=== PATIENT | male | born 1980 | race Caucasian/White ===

== ENCOUNTER 2017-01-03 16:00 | Inpatient (IN) | payer MEDICARE, MEDICAID ==
[~2017-01-03] VITALS: Ht 185.4 cm; Wt 98.6 kg
[~2017-01-03 16:00] MED LIST: BACL10TA PO; BISA10EN RC; DIAZ5TAB3 PO; DOCU-41 PO; GABA-502 PO; MORP-32 PO; OXYB15TA PO; OXYC10TA8 PO; PANT20TA2 PO; PARO20TA5 PO; SENN-133 PO; TRAZ-115 PO; VANC750V IV
[2017-01-03 16:14] VITALS: BP 123/71; PULSE 104; RESP 20; O2SAT 97
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
[2017-01-03] MEDS ORDERED: 0.9% Sodium Chloride 1,000 ML IV ONE (17:30)
[2017-01-03 18:06] LABS: APPEARANCE,URINE CLEAR (CLEAR,HAZY); COLOR,URINE YELLOW (YELLOW); OCCULT BLOOD,URINE TRACE (NEGATIVE); UROBILINOGEN,URINE NORMAL (NORMAL)
[2017-01-03 18:22] LABS: BASOPHILS % (AUTO) 0.1 % (0-3); EOSINOPHILS % (AUTO) 0.3 % (0-5); MONOCYTES % (AUTO) 4.9 % (4-12); Mean Corpuscular Hemoglobin 28.7 pg (27.0-35.0); Mean Corpuscular Volume 84.8 fL (81-100); NEUTROPHILS % (AUTO) 84.1 % (40-74); Platelet Count 266 bil/L (150-400)
--- NOTE | 2017-01-03 18:23 | DRSVH ---
PROCEDURE: X-RAY RIGHT FOOT COMPLETE, MINIMUM THREE VIEWS ([id number]) INDICATIONS: chronic ulcer TECHNIQUE: 3 views of the foot were acquired. COMPARISON: [facility], CR, XR FOOT 3VW RT, 06/16/2016, 17:40. FINDINGS: Bones: No fractures or dislocations. No suspicious bony lesions. Mild first MTP joint degeneration . Severe subluxation/dorsal dislocation of the fifth MTP joint. There is lateral focal osseous destru ction of the fifth metatarsal head Soft tissues: No tibiotalar joint effusion. Achilles tendon appears normal. IMPRESSION: Dislocation of the fifth MTP joint. Lytic change, and focal osseous destruction involving the fifth metatarsal head in keeping with osteo myelitis Dictated by: Vitaliy Kam M.D. on 01/03/2017 at 18:19 Approved by: Vitaliy Kam M.D. on 01/03/2017 at 18:22
--- NOTE | 2017-01-03 18:38 | PCM.EDPN ---
ED Note Date of Service Jan 03, 2017 1844: Patient rechecked by Dr. Norman after shift-change signover. His x- ray has been read as osteomyelitis and he is positive for UTI. He has a wound care visit in 5 days. Discussed findings with patient and need for specialized care. NPO as of about 14:00 today. Informed patient of need for admission for further evaluation and possible surgical intervention. He agrees with plan for admission. Impression: osteomyelitis, urinary tract infection Labs & Diagnostics Labs & Diagnostics X-ray right foot, 3 views complete IMPRESSION: Dislocation of the fifth MTP joint. Lytic change, and focal osseous destruction involving the fifth metatarsal head in keeping with osteomyelitis Dictated by: Vitaliy Kam M.D. on 01/03/2017 at 18:19 Approved by: Vitaliy Kam M.D. on 01/03/2017 at 18:22 Consult/PCP Time Consult/PCP Called: 18:55 Consult/PCP: Consulted with labor custodian Dr. Romero. Requests to keep him NPO at midnight. ED Scribe Statement Portions of this note were transcribed by Flynn Kahn. I, Dr. Normna, personally performed the history, physical exam and medical decision-making; I reviewed and confirmed the accuracy of the information in the transcribed note. Signed by Kalyn Cortez, 01/03/17 - 1844 ED Attending Statement I assumed care of patient from Dr. Lewis pending lab results. Patient with osteo-myelitis right fifth metatarsal. Also with UTI. Will be admitted and kept nothing by mouth at midnight. Placed on vancomycin and Zosyn. Podiatry will see patient in the morning. Kirt Norman MD Jan 03, 2017 18:38 FLYNN KAHN Jan 03, 2017 18:46
[2017-01-03] MEDS ORDERED: Vancomycin Dose per Pharmacist XX ONE (18:55)
[2017-01-03] MEDS ORDERED: Piperacillin-Tazo 3.375 Gm Inj 3.375 GM in Dextrose 5% Minibag Plus 50 ML IV ONE (18:55)
[2017-01-03 19:13] VITALS: BP 112/67; PULSE 61; O2SAT 98
[2017-01-03] MEDS ORDERED: Ondansetron 2 mg/mL 2 mL Inj IVPUSH PRN ×2 (19:15→19:30)
[2017-01-03] MEDS ORDERED: Alum-Mag Hydrox-Simeth 30 mL Suspension PO PRN ×2 (19:15→19:30)
[2017-01-03] MEDS ORDERED: 0.9% Sodium Chloride 100 ML ONE (19:20)
[2017-01-03] MEDS ORDERED: Vancomycin Inj 2,000 MG in 0.9% Sodium Chloride 500 ML IV ONE (19:20)
[2017-01-03] MEDS ORDERED: Polyethylene Glycol (PEG) 17 Gm Powder PO PRN (19:30)
[2017-01-03] MEDS ORDERED: BACL10TA PO (20:01)
--- NOTE | 2017-01-03 20:25 | NUR ---
Admit Note Pt. arrived on floor at 2019. Pt. was having severe muscle spasms. Pt. is alert and oriented x3. Peripheral IV intact and patent. Will continue to monitor.
[2017-01-03] MEDS ORDERED: Morphine ER 15 mg (MS Contin) Tablet PO SCH (20:45)
[2017-01-03 21:00] VITALS: BP 111/72; PULSE 73; RESP 16; O2SAT 97
[2017-01-03] MEDS: 0.9% Sodium Chloride 1,000 ML IV SCH (21:12)
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
[2017-01-03] MEDS: Vancomycin Dose per Pharmacist XX SCH (22:12)
[2017-01-03] MEDS: HYDROmorphone 1 mg/mL Inj IVPUSH PRN (22:33)
[2017-01-04] VITALS (11 sets, daily range): BP systolic 97–118; BP diastolic 58–72; PULSE 49–72; RESP 11–16; O2SAT 90–97
--- NOTE | 2017-01-04 03:30 | PCM.CONPHA ---
Subjective Nausea, fevers, chills Reason for Pharmacy Consult: Vancomycin Dosing Assessment/Plan Assessment/Plan Pharmacy Kinetic Dosing Vancomycin Indication: Osteomyelitis Vanc goal trough: 15-20 mcg Pt wt: 98.6 kg Other ABX: Zosyn SCr: 0.62 WBC: 7.6 Cultures: Blood pending Assessment/Plan: - Loading dose of vancomycin 2,000 mg given in ED. -Will schedule vancomycin to 1250 mg Q8H (roughly 12.6mg/kg) -Will schedule trough level to be drawn on 01/05/17 @0500. Pharmacy appreciates consult and will continue to monitor. Thanks, Ayaan [place], PharmD Ayaan Colorado Jan 04, 2017 03:30
[2017-01-04] MEDS: Piperacillin-Tazo 3.375 Gm Inj 3.375 GM in Dextrose 5% Minibag Plus 50 ML IV SCH ×2 (03:45→11:33)
[2017-01-04] MEDS: HYDROmorphone 1 mg/mL Inj IVPUSH PRN ×3 (05:22→14:08)
[2017-01-04 06:11] LABS: BASOPHILS % (AUTO) 0.3 % (0-3); EOSINOPHILS % (AUTO) 2.7 % (0-5); MONOCYTES % (AUTO) 10.7 % (4-12); Mean Corpuscular Hemoglobin 28.7 pg (27.0-35.0); Mean Corpuscular Volume 86.9 fL (81-100); NEUTROPHILS % (AUTO) 64.1 % (40-74); Platelet Count 199 bil/L (150-400)
[2017-01-04] MEDS: Pantoprazole 20 mg ER24 Tablet PO SCH (07:30)
[2017-01-04] MEDS ORDERED: Lidocaine PF 1% 30 mL Inj ONE (08:04)
[2017-01-04] MEDS ORDERED: fentaNYL-PF 50 mCg/mL 2 mL Inj ONE (08:04)
[2017-01-04] MEDS ORDERED: Propofol 10,000 mCg/mL 20 mL Inj ONE (08:04)
--- NOTE | 2017-01-04 08:15 | PCM.PNMED ---
Subjective Date of Service Jan 04, 2017 Lea Moffett is a 36-year-old man with spastic paraplegia from the chest down. The patient has had a pressure ulceration on his right foot that led to osteomyelitis. In the effort to preserve his foot structure, he was treated with IV antibiotics and localized debridement, including some bone. He was discharged from the wound care center after successful wound healing was completed following a course of 6 weeks of IV antibiotics. This all apparently happened in August to October He was supposed to see Dr. Veliz in follow-up this , but the ulceration has recurred over the past 2 weeks. At this point he is tired of dealing with this and missing important events in his life by getting sick in association with this recurrent ulceration. He knows that a partial fifth toe amputation, if it heals properly, would be definitive treatment. The patient decided to go for the surgery and he is being seen after having undergone right small toe amputation. He states Over the past few days he has had fevers, chills, nausea, and vomiting. Currently in the room he says his having muscle spasms and states that he is on a lot of baclofen that he does not feel it is ever enough. He is asking for his home pain medications instead of Dilaudid as his home morphine is extended release. He is eating okay denies nausea. Exam Vital Signs Vital Sign - Last Date Time Temp Pulse Resp B/P Pulse Ox O2 Delivery O2 Flow Rate FiO2 01/04/17 06:30 36.7 61 16 106/65 94 Room Air Intake and Output 01/03/17 01/03/17 01/04/17 Cumulative From/Thru 15:00 23:00 07:00 01/03/17 16:14 - 01/04/17 06:49 Intake Total 1000 ml 1331 ml 2331 ml Output Total 750 ml 750 ml Balance 1000 ml 581 ml 1581 ml Intake Oral 300 ml 300 ml IV Total 1000 ml 1031 ml 2031 ml Output Urine Total 750 ml 750 ml Exam Gen.: writhing in bed stating he is having an acute muscle spasm. HEENT normocephalic atraumatic. Heart: Regular rate and rhythm or murmurs. Lungs clear to auscultation no crackles or wheezes. Abdomen nondistended Extremities: Right foot is wrapped and pressure dressings, left lower extremity negative for edema Neuro: He has no sensation down was unable to feel gentle touch over his feet and legs. Psych: Affect is impatient, mood is impatient IVs and Medications Medications Reviewed: Medications were reviewed in detail Lab and Diagnostics Result Diagram: 01/04/1751401/04/17514 X-Rays, CTs and MRIs [facility] Diagnostic Imaging Department [facility] [place] [address] Patient Name: MARIA A KING MR#: [id number] Location: [facility] Ordering Phys: Itzel Lewis MD Date of Service: 01/03/17 8168 PROCEDURE: X-RAY RIGHT FOOT COMPLETE, MINIMUM THREE VIEWS ([id number]) INDICATIONS: chronic ulcer TECHNIQUE: 3 views of the foot were acquired. COMPARISON: [facility], CR, XR FOOT 3VW RT, 06/16/2016, 17:40. FINDINGS: Bones: No fractures or dislocations. No suspicious bony lesions. Mild first MTP joint degeneration. Severe subluxation/dorsal dislocation of the fifth MTP joint. There is lateral focal osseous destruction of the fifth metatarsal head Soft tissues: No tibiotalar joint effusion. Achilles tendon appears normal. IMPRESSION: Dislocation of the fifth MTP joint. Lytic change, and focal osseous destruction involving the fifth metatarsal head in keeping with osteomyelitis Dictated by: Vitaliy Kam M.D. on 01/03/2017 at 18:19 Approved by: Vitaliy Kam M.D. on 01/03/2017 at 18:22 [facility] Diagnostic Imaging Department [facility] [place] [address] PATIENT NAME: MARIA A KING MR#: [id number] LOCATION: SCT ORDERING PHYS: Kristy Veliz DPM DATE OF SERVICE: 06/27/16 1555 PROCEDURE: CT FOOT RIGHT WITH CONRAST ([id number]) INDICATIONS: NONHEALING R FOOT WOUND TECHNIQUE: After the administration of intravenous contrast, 3 mm axial sections acquired of the right foot, with coronal and sagittal reformats. For radiation dose reduction, the following was used: automated exposure control, adjustment of mA and/or kV according to patient size. COMPARISON: [facility], CR, XR FOOT 3VW RT, 06/16/2016, 17:40. FINDINGS: Image quality: Excellent. Osseous structures demonstrate no gross erosions or fractures. The osseous structure adjacent to the ulcer along the under surface of the fifth metatarsal demonstrates no erosion. Degenerative changes are present within the foot. Remaining soft tissues demonstrate no gross inflammatory changes. Vascular structures appear well-opacified. IMPRESSION: 1. Ultrasound noted within the soft tissues along the under surface of the foot at the level of the fifth metatarsal. No visualized osseous erosion. Dictated by: Jolanta Limon M.D. on 06/27/2016 at 17:07 Approved by: Jolanta Limon M.D. on 06/27/2016 at 17:07 Assessment & Plan Patient is a 36 year old male with history of paraplegia with extreme muscle spasticity and recent osteomyelitis secondary to right foot ulcer, treated with IV vancomycin who presents with 3 days of nausea, vomiting, fevers, and chills. Admitted for osteomyelitis and UTI. 1. Osteomyelitis, acute. Present on admission. - Pt presents with right foot ulcer with sinus tract and surrounding erythema. Previously treated with IV vancomycin with outpatient PICC line in August 2016. Wound cultures appeared to grow MSSA. However, given exposure to healthcare setting, will continue to treat with broad spectrum coverage, including MRSA. - MRSA nasal swab - Blood and wound cultures - Vancomycin and Zosyn IV - NPO after midnight - Procalcitonin ordered - Dr. Romero of Podiatry is consulting. Patient is scheduled for surgery tomorrow. -Patient is status post right little toe amputation, Dr. Duffy is contacted by phone and she is agreeable with 1 more dose of vancomycin and stopping Zosyn. Urine 2. Urinary tract infection, acute. Present on admission. - UA showed >50 WBCs, many bacteria, positive nitrites. He reports recurrent UTIs, usually E. coli. - Pt is on Vancomycin and Zosyn IV: Discussed with patient his chronic UTI. He says that he never needed broad-spectrum antibiotics for his UTI. Usually he takes Cipro R Augmentin. Based on his vitals at admission he does not appear to be septic. Because we will be putting him on Cipro 500 twice a day by mouth. Follow the cultures and change the therapy as needed. 3. Paraplegia w/ extreme muscle spasticity - Continue on QID baclofen. Will switch to IV Dilaudid while pt is NPO after midnight, can switch back to PO morphine after surgery.: Is switched back to by mouth morphine and oxycodone home medications 4. Neurogenic bladder - Continue oxybutynin 5. GERD - Continue Protonix 6. Chronic constipation - Continue bisacodyl, Colace, senna 7. Anxiety and depression - Continue paroxetine, trazodone. 8. Other chronic conditions - Hx hemorrhoids - Hx kidney stones s/p litholapaxy x2 - Hx hypertension - Osteoarthritis Disposition: Patient will likely be discharged home tomorrow on by mouth antibiotics for UTI unless cultures show otherwise Pain Evaluation: Adequate Pain Control GI Prophylaxis: Proton Pump Inhibitor Resuscitation Status: CPR: Attempt Resuscitation Jana Muller DO Jan 04, 2017 08:15
[2017-01-04] MEDS: Vancomycin Dose per Pharmacist XX SCH (08:30)
[2017-01-04] MEDS: Tolterodine ER 4 mg ER24 Capsule PO SCH (08:30)
[2017-01-04] MEDS: Vancomycin Inj 1,250 MG in 0.9% Sodium Chloride 250 ML IV SCH ×3 (08:36→23:47)
--- NOTE | 2017-01-04 08:50 | PCM.CHPPOD ---
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 The patient has had a pressure ulceration on his right foot that led to osteomyelitis. In the effort to preserve his foot structure, he was treated with IV antibiotics and localized debridement, including some bone. He was discharged from the wound care center after successful wound healing was completed following a course of 6 weeks of IV antibiotics. He was supposed to see Dr. Veliz in follow-up this , but the ulceration has recurred over the past 2 weeks. At this point he is tired of dealing with this and missing important events in his life by getting sick in association with this recurrent ulceration. He knows that a partial fifth ray amputation, if it heals properly , would be definitive treatment. This is what he is requesting today. Over the past few days he has had fevers, chills, nausea, and vomiting. Allergy Allergies: Coded Allergies: No Known Allergies (Verified Allergy, Unknown, 10/08/16) Medications Baclofen (Baclofen) 10 Mg Tablet 20 MG PO afternoon, evening Baclofen (Baclofen) 10 Mg Tablet 30 MG PO morning, night Bisacodyl (Bisacodyl Rectal) 10 Mg/30 Ml Enema 10 MG RC DAILY Docusate Sodium (Colace) 100 Mg Capsule 100 MG PO BID Morphine Sulfate ER (Morphine Sulfate ER) 15 Mg Tablet.er 15 MG PO Q8H Oxybutynin Chloride ER (Oxybutynin Chloride ER) 15 Mg Tab.er.24 10 MG PO BID Pantoprazole DR (Pantoprazole DR) 20 Mg Tablet.dr 20 MG PO DAILY Paroxetine (Paroxetine) 20 Mg Tablet 20 MG PO noon Sennosides (Senna) 8.6 Mg Tablet 8.6 MG PO HS Trazodone (Trazodone) 50 Mg Tablet 50 MG PO HS Past Medical History Surgeries: Yes (BACK AND RT SHOULDER) Medical History: Surgical History: Social History Hx Alcohol Use: No Hx Substance Use: Yes (Uses marijuana for muscle spasms. Past history of meth use, but has been clean for years. ) Smoking Status: Never Smoker Podiatry Consult Exam Vital Signs Vital Sign - Last Date Time Temp Pulse Resp B/P Pulse Ox O2 Delivery O2 Flow Rate FiO2 01/04/17 06:30 36.7 61 16 106/65 94 Room Air Intake and Output 01/03/17 01/03/17 01/04/17 Cumulative From/Thru 15:00 23:00 07:00 01/03/17 16:14 - 01/04/17 06:49 Intake Total 1000 ml 1331 ml 2331 ml Output Total 750 ml 750 ml Balance 1000 ml 581 ml 1581 ml Intake Oral 300 ml 300 ml IV Total 1000 ml 1031 ml 2031 ml Output Urine Total 750 ml 750 ml Result Diagram: 01/04/17 0515 01/04/17 0515 Lab Test 01/03/17 17:44 01/03/17 18:10 01/03/17 18:13 01/04/17 05:15 Urine Color Yellow (YELLOW) Urine Appearance Clear (CLEAR,HAZY) Urine pH 7.0 (5.0-8.0) Urine Specific [place] 1.010 (1.003-1.035) Urine Protein Negativemg/dL (NEG,TRACE) Urine Glucose (UA) Negativemg/dL (NEGATIVE) Urine Ketones Negativemg/dL (NEGATIVE) Urine Occult Blood Trace (NEGATIVE) Urine Nitrite Positive (NEGATIVE) Urine Bilirubin Negative (NEGATIVE) Urine Urobilinogen Normalmg/dL (NORMAL) Urine Leukocyte Esterase Small (NEGATIVE) Urine RBC 0-2/hpf (0-2) Urine WBC >50/hpf (0-5) Urine Epithelial Cells Few/hpf (NONE-MOD) Urine Crystals None seen (NONE SEEN) Urine Bacteria Many/hpf (NONE-FEW) Urine Hyaline Casts None/lpf (NONE) Urine Granular Casts None seen (NONE SEEN) Urine Waxy Casts None seen (NONE SEEN) Urine Red Blood Cell Casts None seen (NONE SEEN) Urine White Blood Cell Casts None seen (NONE SEEN) Urine Mucus None seen (None Seen) Urine Trichomonas None seen (NONE SEEN) Urine Yeast None (NONE SEEN) Urinalysis Comment None Urine Culture Reflexed Indicated Procalcitonin 0.05ng/mL (0.00-0.08) Magnesium Level 2.0mg/dL (1.6-2.6) Lipase 11U/L (13-60) Hold Shrestha Top Tube Received (Received) White Blood Count 6.7th/mm3 (3.8-10.1) Red Blood Count 4.35mil/mm3 (4.40-5.80) Hemoglobin 12.5g/dL (13.8-17.2) Hematocrit 37.8% (41.0-50.0) Mean Corpuscular Volume 86.9fL (81-100) Mean Corpuscular Hemoglobin 28.7pg (27.0-35.0) Mean Corpuscular Hemoglobin Concent 33.1% (32.0-37.0) Red Cell Distribution Width 12.9% (12.3-15.4) Platelet Count 199bil/L (150-400) Neutrophils (%) (Auto) 64.1% (40-74) Lymphocytes (%) (Auto) 22.1% (14-46) Monocytes (%) (Auto) 10.7% (4-12) Eosinophils (%) (Auto) 2.7% (0-5) Basophils (%) (Auto) 0.3% (0-3) Sodium Level 143mEq/L (134-144) Potassium Level 3.6mEq/L (3.5-5.2) Chloride Level 105mEq/L (97-108) Carbon Dioxide Level 23mmol/L (18-29) Blood Urea Nitrogen 12mg/dL (6-20) Creatinine 0.63mg/dL (0.76-1.27) Estimat Glomerular Filtration Rate 152mL/min (>59) Glucose Level 94mg/dL (60-99) Calcium Level 8.3mg/dL (8.5-10.1) Total Bilirubin 0.3mg/dL (0.0-1.2) Aspartate Amino Transf (AST/SGOT) 17U/L (0-50) Alanine Aminotransferase (ALT/SGPT) 16U/L (0-44) Alkaline Phosphatase 93U/L (25-150) Total Protein 5.3g/dL (6.4-8.4) Albumin 3.5g/dL (3.4-5.0) Diagnostics Right foot x-rays show bony erosion with new changes consistent with chronic and acute osteomyelitis in the fifth metatarsal, with subluxation of the fifth toe. Exam General: Alert, Oriented X3, Cooperative, No Acute Distress Lower Extremities: Right: Edema localized Lower Extremity Pulses: Palpable: Left Dorsalis Pedis Left Posterior Tibal Right Dorsalis Pedis Right Posterior Tibal Podiatry WOUND : Wound Location/Description Right fifth metatarsal head ulceration measures 0.5 x 0.5 cm in size, 0.3 cm in depth with a bony endpoint. Periwound maceration is present. Skin margins are not mobile. It appears that scar tissue has adhered to the underlying dermis and bone. The bony prominence appears to correspond to the area of erosion noted on x-ray. No other lower extremity open ulcerations noted. Assessment & Plan Problems: (1) Osteomyelitis Qualifiers: Osteomyelitis location: foot Laterality: right Chronicity: acute Qualified Code: M86.171 - Other acute osteomyelitis, right ankle and foot Plan: The patient was consented for partial fifth ray amputation. We talked about the benefits of keeping the fifth toe in place versus the risk of a flail toe and constant catching. The patient is in favor of removing the toe if it will mean that the contour would be safer for permanent solution. He would like to have it done as soon as possible. He was held nothing by mouth last night in anticipation of surgical procedure. At this point, the patient has failed all conservative measures to try to keep this area from surgical excision and his requests for a definitive treatment is reasonable. In order to facilitate a shorter hospital stay, surgery will be performed today. He agrees to proceed with local anesthetic and IV sedation. He is in favor of general anesthesia, if that is not adequate. Status: Acute ICD Code: M86.9 Lashaun Romero DPM Jan 04, 2017 08:50
--- NOTE | 2017-01-04 09:35 | NUR ---
Pt off unit Pt to O.R. at 0935 hrs. Addendum: 01/04/17 at 1508 by ALBA MADDEN RN Pt returned to [facility] from PACU at 1115. Drowsy but oriented x 3. No complaints of pain. VSS. Dressing on right foot is clean, dry, and intact. Pt supine in bed with HOB at 30 degrees; 1 pillow under his right lower for elevation. Heel floated. Care continues.
[2017-01-04] MEDS ORDERED: Lactated Ringer's 1,000 ML IV ONE (09:44)
[2017-01-04] MEDS ORDERED: Lactated Ringer's 500 ML IV PRN (09:56)
[2017-01-04] MEDS ORDERED: Lactated Ringer's 1,000 ML IV SCH (09:56)
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
[2017-01-04] MEDS ORDERED: fentaNYL-PF 50 mCg/mL 2 mL Inj IVPUSH PRN (10:00)
[2017-01-04] MEDS ORDERED: Dexamethasone 4 mg/mL Inj IVPUSH PRN (10:00)
[2017-01-04] MEDS ORDERED: HYDROmorphone 1 mg/mL Inj IVPUSH PRN (10:00)
[2017-01-04] MEDS ORDERED: Phenylephrine 10,000 mCg/mL Inj IVPUSH PRN (10:00)
[2017-01-04] MEDS ORDERED: EPHEDrine Sulfate 50 mg/mL Inj IVPUSH PRN (10:00)
[2017-01-04] MEDS ORDERED: Lidocaine PF 1% 30 mL Inj INJ ONE (10:05)
--- NOTE | 2017-01-04 10:05 | NUR ---
Social Work-attempted assessment: Data:EMR Reviewed. Pt is a 36 y/o male who was admitted on 01/03/17 for UTI and osteomyelitis per H&P. Pt's insurance is [facility] and [facility] and PCP is Aman Lares MD. SW attempted to meet with pt and complete assessment, pt is currently out of room at OR. SW to follow up post OR to discuss discharge planning and complete assessment. SW will continue to follow. Assessment:Pt who is w/c bound at baseline. Plan:SW to follow up post OR to complete assessment when appropriate. SW will continue to follow. IDALIA Boggs
[2017-01-04] MEDS ORDERED: Lidocaine 1%-Epi 1:100,000 20 mL Inj INJ ONE (10:10)
--- NOTE | 2017-01-04 10:38 | PCM.ANEP1 ---
Post Anesthesia Phase 1 PACU Phase 1 Assessment Date of Service: Jan 04, 2017 Vital Signs Vital Signs Date Time Temp Pulse Resp B/P Pulse Ox O2 Delivery O2 Flow Rate FiO2 01/04/17 06:30 36.7 61 16 106/65 94 Room Air Anesthetic Administered: MAC Level of Alertness: Awake, talking ESPINOZA's with Equal Strength: Yes Pain: No Pain Scale Score: 0 Nausea or Vomiting: No Oxygen Delivery: Room Air Lungs: Normal Air Movement Dermatome Level: T2 ([place]) Tate Myers MD Jan 04, 2017 10:38
--- NOTE | 2017-01-04 10:40 | PCM.ANEP2 ---
Post Anesthesia Evaluation ASA/CMS Post Anesthesia Date of Service: Jan 04, 2017 VS in Patient's Normal Range?: Yes Resp Stable; Airway Patent?: Yes CV Function & Hydration Stable: Yes Mental Status Recovered?: Yes Pain control Satisfactory?: Yes N/V Control Satisfactory?: Yes Tate Myers MD Jan 04, 2017 10:40
--- NOTE | 2017-01-04 10:42 | PCM.PODPO ---
Podiatry Operative Report Date of Service: Jan 04, 2017 Date of Service Jan 04, 2017 Pre Operative Diagnosis Osteomyelitis, right fifth metatarsal head Post Operative Diagnosis Osteomyelitis, right fifth metatarsal head Procedure Amputation right fifth toe and partial fifth metatarsal with primary closure Surgeon Surgeon: Lashaun Romero DPM Assistants: None Indication for Procedure Chronic, recurrent ulceration with underlying osteomyelitis, failed outpatient IV antibiotic treatment. Findings Consistent with radiographic signs of osteomyelitis in the fifth metatarsal head. Good tissue bleeding. Viable bone margin. Details of Procedure The patient was identified in preop holding area and brought back to the operating room. He was placed on the operating table in supine position. The timeout protocol was completed and the patient's site of surgery confirmed. IV sedation was initiated, the right foot anesthetized with lidocaine 1% plain, then prepped and draped in the usual aseptic manner. Incisional lidocaine with epinephrine was injected for hemostasis. No tourniquet was used. A fourth webspace incision was made extending plantar laterally around the ulceration. The ulcer was excised fully to the bone. A dorsolateral incision was then made and connected with the plantar 12 allow for full excision and disarticulation of the fifth toe. The fifth metatarsal head was resected with a bone saw and sent for histopathology along with the fifth toe. A small section of the metatarsal head was removed with the rongeur and sent for culture and sensitivity. Irrigation was performed with sterile LR. Bleeding vessels were cauterized where needed. The foot was cleansed and dressed with sterile Eris silk, 4 x 4 gauze, Kerlix, Coban with moderate compression. Capillary refill to the toes was less than 2 seconds. The patient was weaned off of anesthesia and transported to recovery room with vital signs stable and vascular status to the right foot intact. Grafts, Implants: None Complications There were no periprocedural complications identified. Condition Stable Anesthetic Administered: MAC Drains: None Catheters: None Output, Estimated Blood Loss: 20 (ml) Blood Admin during surgery: No Surgical Specimen Removed: Yes Specimen sent to Pathology: Yes Surgical Specimen description: Right fifth metatarsal bone for histopathology and culture. Post Operative Plan No weightbearing on the right foot. Elevate for 24 hours. Maintain current dressing. I expect to change the dressing tomorrow and discharge the patient on oral antibiotics, given possibility for oral antibiotics for his UTI as well. I expect primary healing of the amputation site within 2 weeks Lashaun Romero DPM Jan 04, 2017 10:42
[2017-01-04] MEDS: PARoxetine 20 mg Tablet PO SCH (11:32)
[2017-01-04] MEDS: 0.9% Sodium Chloride 1,000 ML IV SCH ×2 (12:21→23:46)
[2017-01-04] MEDS: Morphine ER 15 mg (MS Contin) Tablet PO SCH ×2 (18:09→23:46)
[2017-01-04] MEDS ORDERED: Morphine ER 15 mg (MS Contin) Tablet PO SCH (20:30)
--- NOTE | 2017-01-05 04:43 | NUR ---
Pain pt has complained of muscle spasms and pain in his legs 9/10 in intensity. he has taken his MS contin, oxycodone and baclofen. he says the pain is better now that he is back on his home pain medications. dressing to R foot has been c/d/i it has not needed reinforcing. will continue to monitor.
[2017-01-05] MEDS ORDERED: Vancomycin Serum Trough XX ONE (05:00)
--- NOTE | 2017-01-05 05:39 | NUR ---
N/V Pt is having nausea and vomiting this AM. he says his nausea comes and goes. he requested a puke bucket but did not want any anti-emetics. he said "that stuff scares me, it blocks me up". pt said he wanted to see if it would pass on his own. he was given an emesis bag and nurse made sure he had his call light within reach. will continue to monitor.
[2017-01-05 06:09] LABS: BASOPHILS % (AUTO) 0.2 % (0-3); EOSINOPHILS % (AUTO) 3.9 % (0-5); Mean Corpuscular Volume 86.6 fL (81-100); NEUTROPHILS % (AUTO) 65.5 % (40-74); Platelet Count 167 bil/L (150-400)
[2017-01-05 06:15] VITALS: BP 124/78; PULSE 59; RESP 16; O2SAT 94
[2017-01-05] MEDS: Vancomycin Dose per Pharmacist XX SCH (07:51)
[2017-01-05] MEDS ORDERED: Vancomycin Inj 1,250 MG in 0.9% Sodium Chloride 250 ML IV SCH (08:00)
[2017-01-05] MEDS: Pantoprazole 20 mg ER24 Tablet PO SCH (09:06)
[2017-01-05] MEDS: Morphine ER 15 mg (MS Contin) Tablet PO SCH ×2 (09:06→15:20)
[2017-01-05] MEDS: Tolterodine ER 4 mg ER24 Capsule PO SCH (09:07)
[2017-01-05 09:17] VITALS: BP 149/98; PULSE 77; RESP 16; O2SAT 98
--- NOTE | 2017-01-05 09:17 | PCM.PNPOD ---
Subjective Date of Service: Jan 05, 2017 Visit Information: Reason for Visit Uti,Osteomyelitis Surgery/Surgery Date 01/04/14, amputation of right 5th toe and partial metatarsal. Post-Op Day # 1 Date of Admission: Jan 03, 2017 at 19:42 Subjective: Patient sound asleep at the time of my visit. Foot examined without disturbing him. He was informed of postop plan yesterday. Objective Vital Sign - Last Date Time Temp Pulse Resp B/P Pulse Ox O2 Delivery O2 Flow Rate FiO2 01/05/17 06:15 37.1 59 16 124/78 94 Room Air Intake and Output 01/04/17 01/04/17 01/05/17 Cumulative From/Thru 15:00 23:00 07:00 01/03/17 16:14 - 01/05/17 06:25 Intake Total 800 ml 2251 ml 1572 ml 6954 ml Output Total 195 ml 1400 ml 2100 ml 4445 ml Balance 605 ml 851 ml -528 ml 2509 ml Intake Oral 800 ml 200 ml 1300 ml IV Total 800 ml 1451 ml 1372 ml 5654 ml Output Urine Total 175 ml 1400 ml 2100 ml 4425 ml Estimated Blood Loss 20 ml 20 ml # Bowel Movements 1 1 Result Diagram: 01/05/17 0544 01/05/17 0544 Lab Test 01/03/17 17:44 01/03/17 18:10 01/03/17 18:13 01/05/17 05:44 Urine Color Yellow (YELLOW) Urine Appearance Clear (CLEAR,HAZY) Urine pH 7.0 (5.0-8.0) Urine Specific [place] 1.010 (1.003-1.035) Urine Protein Negativemg/dL (NEG,TRACE) Urine Glucose (UA) Negativemg/dL (NEGATIVE) Urine Ketones Negativemg/dL (NEGATIVE) Urine Occult Blood Trace (NEGATIVE) Urine Nitrite Positive (NEGATIVE) Urine Bilirubin Negative (NEGATIVE) Urine Urobilinogen Normalmg/dL (NORMAL) Urine Leukocyte Esterase Small (NEGATIVE) Urine RBC 0-2/hpf (0-2) Urine WBC >50/hpf (0-5) Urine Epithelial Cells Few/hpf (NONE-MOD) Urine Crystals None seen (NONE SEEN) Urine Bacteria Many/hpf (NONE-FEW) Urine Hyaline Casts None/lpf (NONE) Urine Granular Casts None seen (NONE SEEN) Urine Waxy Casts None seen (NONE SEEN) Urine Red Blood Cell Casts None seen (NONE SEEN) Urine White Blood Cell Casts None seen (NONE SEEN) Urine Mucus None seen (None Seen) Urine Trichomonas None seen (NONE SEEN) Urine Yeast None (NONE SEEN) Urinalysis Comment None Urine Culture Reflexed Indicated Procalcitonin 0.05ng/mL (0.00-0.08) Magnesium Level 2.0mg/dL (1.6-2.6) Lipase 11U/L (13-60) Hold Shrestha Top Tube Received (Received) White Blood Count 5.7th/mm3 (3.8-10.1) Red Blood Count 4.41mil/mm3 (4.40-5.80) Hemoglobin 12.8g/dL (13.8-17.2) Hematocrit 38.2% (41.0-50.0) Mean Corpuscular Volume 86.6fL (81-100) Mean Corpuscular Hemoglobin 29.0pg (27.0-35.0) Mean Corpuscular Hemoglobin Concent 33.5% (32.0-37.0) Red Cell Distribution Width 12.7% (12.3-15.4) Platelet Count 167bil/L (150-400) Neutrophils (%) (Auto) 65.5% (40-74) Lymphocytes (%) (Auto) 21.0% (14-46) Monocytes (%) (Auto) 9.0% (4-12) Eosinophils (%) (Auto) 3.9% (0-5) Basophils (%) (Auto) 0.2% (0-3) Erythrocyte Sedimentation Rate 10mm/hr (0-15) Sodium Level 143mEq/L (134-144) Potassium Level 3.9mEq/L (3.5-5.2) Chloride Level 106mEq/L (97-108) Carbon Dioxide Level 24mmol/L (18-29) Blood Urea Nitrogen 7mg/dL (6-20) Creatinine 0.62mg/dL (0.76-1.27) Estimat Glomerular Filtration Rate 155mL/min (>59) Glucose Level 91mg/dL (60-99) Calcium Level 8.5mg/dL (8.5-10.1) Total Bilirubin 0.4mg/dL (0.0-1.2) Aspartate Amino Transf (AST/SGOT) 15U/L (0-50) Alanine Aminotransferase (ALT/SGPT) 16U/L (0-44) Alkaline Phosphatase 102U/L (25-150) Total Protein 5.4g/dL (6.4-8.4) Albumin 3.6g/dL (3.4-5.0) Vancomycin Level Trough 18.3mcg/mL Exam General: No Acute Distress Lungs: Normal Air Movement Lower Extremity Pulses: Palpable: Left Dorsalis Pedis Left Posterior Tibal Right Dorsalis Pedis Right Posterior Tibal Podiatry WOUND : Dressing & Drainage Status: Intact, Other (Dressing on right foot did not show any signs of bleeding or strikethrough. It stayed intact overnight. ) Assessment & Plan Problems: (1) Osteomyelitis Qualifiers: Osteomyelitis location: foot Laterality: right Chronicity: acute Qualified Code: M86.171 - Other acute osteomyelitis, right ankle and foot Plan: Postop check showed that toes appear viable, dressing stayed in place well enough to remain intact until Thursday. The patient has a 3:00pm appointment at [facility] Podiatry, Dr. Romero, on January 07, Thursday, for a dressing change and Xrays. Please have him check in at 2:45pm. No antibiotics necessary. Postop shoe left outside of patient's room today for use at time of discharge on right foot for the next 2 weeks.He is to keep his dressings in place, until changed by me. Ok to discharge from my standpoint. Status: Acute ICD Code: M86.9 Lashaun Romero DPM Jan 05, 2017 09:16
--- NOTE | 2017-01-05 11:18 | PCM.PHAPRO ---
Progress Vancomycin Management: -Vancomycin trough level returned as 18.3 this morning on current regimen of 1.25gm iv [id number] -treatment goal for osteo is 15-20. trough was drawn a little bit early so actual level will be slightly less than 18.3. wbc 5.7, pt is afebrile, 's ngtd. will continue with no changes and monitor Lidia Perez [facility] Jan 05, 2017 11:18
--- NOTE | 2017-01-05 11:58 | PCM.DIMED ---
Discharge Instructions Date of Service Jan 05, 2017 Dates of Hospitalization Jan 03, 2017 at 19:42 Discharge Diagnosis Discharge Diagnosis 1. Osteomyelitis s/p Amputation right fifth toe and partial fifth metatarsal with primary closure on 01/04/17, acute. Present on admission. 2.complicated Urinary tract infection, acute. Present on admission. 3. Paraplegia w/ extreme muscle spasticity 4. Neurogenic bladder 5. GERD 6. Chronic constipation 7. Anxiety and depression 8. Other chronic conditions - Hx hemorrhoids - Hx kidney stones s/p litholapaxy x2 - Hx hypertension - Osteoarthritis Diet No restrictions Activity No restrictions Call your provider Fever or Chills, Shortness of breath, Bleeding, Chest pain, Vomitting, Excessive diarrhea, Weakness (unilateral) Patient Instructions you were hospitalized due to osteomyelitis/infection of bone. You underwent Amputation right fifth toe and partial fifth metatarsal with primary closure on 01/04/17. Please follow-up with Dr. Romero on Thursday01/07/17 2:45 PM. you also had UTI. Ciprofloxacin for 3 more days prescribed. No need for long-term antibiotics for your bone infection as per podiatry Dr. Romero. Follow-up plan Please follow-up with podiatry Dr Romero on Thursday01/07/17 2:45 PM. Follow-up Provider: Fozia Lares MD Follow-up with PCP in: 1 week Provider: Lashaun Romero DPM Follow-up in: 1 week Luis A Srivastava MD Jan 05, 2017 11:58
[2017-01-05] MEDS ORDERED: CIPR-231 PO (11:59)
--- NOTE | 2017-01-05 12:42 | PCM.DC.MED ---
Discharge Summary Date of Service Jan 05, 2017 Dates of Hospitalization Date of Hospital Admission Jan 03, 2017 at 19:42 Date of Discharge: Jan 05, 2017 Providers: Admitting Physician: Radha Lovelace MD Primary Care Physician: Fozia Lares MD Attending Physician: Radha Lovelace MD Diagnosis at Time of Discharge Diagnosis at Time of Discharge 1. Osteomyelitis s/p Amputation right fifth toe and partial fifth metatarsal with primary closure on 01/04/17, acute. Present on admission. 2.complicated Urinary tract infection, acute. Present on admission. 3. Paraplegia w/ extreme muscle spasticity 4. Neurogenic bladder 5. GERD 6. Chronic constipation 7. Anxiety and depression 8. Other chronic conditions - Hx hemorrhoids - Hx kidney stones s/p litholapaxy x2 - Hx hypertension - Osteoarthritis Consultations Podiatry Dr Romero Procedures XRay, CTs & MRIs PROCEDURE: X-RAY RIGHT FOOT COMPLETE, MINIMUM THREE VIEWS ([id number]) INDICATIONS: chronic ulcer TECHNIQUE: 3 views of the foot were acquired. COMPARISON: [facility], CR, XR FOOT 3VW RT, 06/16/2016, 17:40. FINDINGS: Bones: No fractures or dislocations. No suspicious bony lesions. Mild first MTP joint degeneration. Severe subluxation/dorsal dislocation of the fifth MTP joint. There is lateral focal osseous destruction of the fifth metatarsal head Soft tissues: No tibiotalar joint effusion. Achilles tendon appears normal. IMPRESSION: Dislocation of the fifth MTP joint. Lytic change, and focal osseous destruction involving the fifth metatarsal head in keeping with osteomyelitis Dictated by: Vitaliy Kam M.D. on 01/03/2017 at 18:19 Approved by: Vitaliy Kam M.D. on 01/03/2017 at 18:22 [facility] Diagnostic Imaging [place] [address] PATIENT NAME: MARIA A KING MR#: [id number] LOCATION: [facility] ORDERING PHYS: Kristy Veliz DPM DATE OF SERVICE: 06/27/16 1555 PROCEDURE: CT FOOT RIGHT WITH CONRAST ([id number]) INDICATIONS: NONHEALING R FOOT WOUND TECHNIQUE: After the administration of intravenous contrast, 3 mm axial sections acquired of the right foot, with coronal and sagittal reformats. For radiation dose reduction, the following was used: automated exposure control, adjustment of mA and/or kV according to patient size. COMPARISON: [facility], CR, XR FOOT 3VW RT, 06/16/2016, 17:40. FINDINGS: Image quality: Excellent. Osseous structures demonstrate no gross erosions or fractures. The osseous structure adjacent to the ulcer along the under surface of the fifth metatarsal demonstrates no erosion. Degenerative changes are present within the foot. Remaining soft tissues demonstrate no gross inflammatory changes. Vascular structures appear well-opacified. IMPRESSION: 1. Ultrasound noted within the soft tissues along the under surface of the foot at the level of the fifth metatarsal. No visualized osseous erosion. Dictated by: Jolanta Limon M.D. on 06/27/2016 at 17:07 Approved by: Jolanta Limon M.D. on 06/27/2016 at 17:07 Invasive Procedures Date of Service: Jan 04, 2017 Date of Service Jan 04, 2017 Pre Operative Diagnosis Osteomyelitis, right fifth metatarsal head Post Operative Diagnosis Osteomyelitis, right fifth metatarsal head Procedure Amputation right fifth toe and partial fifth metatarsal with primary closure Surgeon Surgeon: Lashaun Romero DPM Assistants: None Indication for Procedure Chronic, recurrent ulceration with underlying osteomyelitis, failed outpatient IV antibiotic treatment. Findings Consistent with radiographic signs of osteomyelitis in the fifth metatarsal head. Good tissue bleeding. Viable bone margin. Details of Procedure The patient was identified in preop holding area and brought back to the operating room. He was placed on the operating table in supine position. The timeout protocol was completed and the patient's site of surgery confirmed. IV sedation was initiated, the right foot anesthetized with lidocaine 1% plain, then prepped and draped in the usual aseptic manner. Incisional lidocaine with epinephrine was injected for hemostasis. No tourniquet was used. A fourth webspace incision was made extending plantar laterally around the ulceration. The ulcer was excised fully to the bone. A dorsolateral incision was then made and connected with the plantar 12 allow for full excision and disarticulation of the fifth toe. The fifth metatarsal head was resected with a bone saw and sent for histopathology along with the fifth toe. A small section of the metatarsal head was removed with the rongeur and sent for culture and sensitivity. Irrigation was performed with sterile LR. Bleeding vessels were cauterized where needed. The foot was cleansed and dressed with sterile Eris silk, 4 x 4 gauze, Kerlix, Coban with moderate compression. Capillary refill to the toes was less than 2 seconds. The patient was weaned off of anesthesia and transported to recovery room with vital signs stable and vascular status to the right foot intact. Grafts, Implants: None Complications There were no periprocedural complications identified. Condition Stable Brief History per HPI performed by 01/03/17 Patient is a 36 year old male with history of paraplegia with extreme muscle spasticity and recent osteomyelitis secondary to right foot ulcer, treated with IV vancomycin who presents with 3 days of nausea, vomiting, fevers, and chills. He states that he has been unable to eat for the last few days. He was seen by Dr Veliz on 10/06/16 or osteomyolitis right foot and has a PICC line for IV Vancomycin. He states that he cannot feel anything below his chest and is paralyzed from the chest down. He reports he was unable to take his baclofen today and has had worsening painful muscle spasms. He reports he has been treated for recurrent UTIs over the past year, typically with E. coli. He self- caths at home. In the ED, temp was 37.4, HR 104, WBC 7.6. CBC and CMP were otherwise normal. X ray of right foot showed lytic change and focal osseous destruction involving the fifth metatarsal head indicative of osteomyelitis. UA showed >50 WBC, positive nitrite, small leukocyte esterase, many bacteria. Hospital Course Patient is a 36 year old male with history of paraplegia with extreme muscle spasticity and recent osteomyelitis secondary to right foot ulcer, treated with IV vancomycin who presents with 3 days of nausea, vomiting, fevers, and chills. Admitted for osteomyelitis and UTI. 1. Osteomyelitis s/p Amputation right fifth toe and partial fifth metatarsal with primary closure on 01/04/17, acute. Present on admission. - Pt presents with right foot ulcer with sinus tract and surrounding erythema. Previously treated with IV vancomycin with outpatient PICC line in August 2016. Wound cultures appeared to grow MSSA. - Blood cx no growth ,wound culture no microorganism. - initially treated with Vancomycin and Zosyn IV.no need for antibiotics up on discharge as per Dr Romero.Dr Romero will evaluate the wound on Thursday on dressing change. She states she will make a decision on antibiotic if needed. Will discharge on ciprofloxacin for 4 more days for complicated Klebsiella UTI. - Procalcitonin negative - Dr. Romero of Podiatry 2. Klebsiella complicated Urinary tract infection, acute. Present on admission. - UA showed >50 WBCs, many bacteria, positive nitrites. ucx klebsiella - Pt initially treated with Vancomycin and Zosyn IV: -ciprofloxacin for 4 more days 3. Paraplegia w/ extreme muscle spasticity - Continue on QID baclofen. oxycodone home medications 4. Neurogenic bladder - Continue oxybutynin 5. GERD - Continue Protonix 6. Chronic constipation - Continue bisacodyl, Colace, senna 7. Anxiety and depression - Continue paroxetine, trazodone. 8. Other chronic conditions - Hx hemorrhoids - Hx kidney stones s/p litholapaxy x2 - Hx hypertension - Osteoarthritis Disposition: discharge home with home health for wound care after initial evaluation on Thursday. Follow-up with podiatry on Thursday at 3pm Exam Vital Signs (Last) Date Time Temp Pulse Resp B/P Pulse Ox O2 Delivery O2 Flow Rate FiO2 01/05/17 09:17 36.6 77 16 149/98 98 Room Air Exam Gen.: writhing in bed stating he is having an acute muscle spasm. HEENT normocephalic atraumatic. Heart: Regular rate and rhythm or murmurs. Lungs clear to auscultation no crackles or wheezes. Abdomen nondistended Extremities: Right foot is wrapped and pressure dressings, left lower extremity negative for edema Neuro: He has no sensation down was unable to feel gentle touch over his feet and legs. Psych: Affect is impatient, mood is impatient Test 01/03/17 17:44 01/03/17 18:10 01/03/17 18:13 01/05/17 05:44 Urine Color Yellow (YELLOW) Urine Appearance Clear (CLEAR,HAZY) Urine pH 7.0 (5.0-8.0) Urine Specific [place] 1.010 (1.003-1.035) Urine Protein Negativemg/dL (NEG,TRACE) Urine Glucose (UA) Negativemg/dL (NEGATIVE) Urine Ketones Negativemg/dL (NEGATIVE) Urine Occult Blood Trace (NEGATIVE) Urine Nitrite Positive (NEGATIVE) Urine Bilirubin Negative (NEGATIVE) Urine Urobilinogen Normalmg/dL (NORMAL) Urine Leukocyte Esterase Small (NEGATIVE) Urine RBC 0-2/hpf (0-2) Urine WBC >50/hpf (0-5) Urine Epithelial Cells Few/hpf (NONE-MOD) Urine Crystals None seen (NONE SEEN) Urine Bacteria Many/hpf (NONE-FEW) Urine Hyaline Casts None/lpf (NONE) Urine Granular Casts None seen (NONE SEEN) Urine Waxy Casts None seen (NONE SEEN) Urine Red Blood Cell Casts None seen (NONE SEEN) Urine White Blood Cell Casts None seen (NONE SEEN) Urine Mucus None seen (None Seen) Urine Trichomonas None seen (NONE SEEN) Urine Yeast None (NONE SEEN) Urinalysis Comment None Urine Culture Reflexed Indicated Procalcitonin 0.05ng/mL (0.00-0.08) Magnesium Level 2.0mg/dL (1.6-2.6) Lipase 11U/L (13-60) Hold Shrestha Top Tube Received (Received) White Blood Count 5.7th/mm3 (3.8-10.1) Red Blood Count 4.41mil/mm3 (4.40-5.80) Hemoglobin 12.8g/dL (13.8-17.2) Hematocrit 38.2% (41.0-50.0) Mean Corpuscular Volume 86.6fL (81-100) Mean Corpuscular Hemoglobin 29.0pg (27.0-35.0) Mean Corpuscular Hemoglobin Concent 33.5% (32.0-37.0) Red Cell Distribution Width 12.7% (12.3-15.4) Platelet Count 167bil/L (150-400) Neutrophils (%) (Auto) 65.5% (40-74) Lymphocytes (%) (Auto) 21.0% (14-46) Monocytes (%) (Auto) 9.0% (4-12) Eosinophils (%) (Auto) 3.9% (0-5) Basophils (%) (Auto) 0.2% (0-3) Erythrocyte Sedimentation Rate 10mm/hr (0-15) Sodium Level 143mEq/L (134-144) Potassium Level 3.9mEq/L (3.5-5.2) Chloride Level 106mEq/L (97-108) Carbon Dioxide Level 24mmol/L (18-29) Blood Urea Nitrogen 7mg/dL (6-20) Creatinine 0.62mg/dL (0.76-1.27) Estimat Glomerular Filtration Rate 155mL/min (>59) Glucose Level 91mg/dL (60-99) Calcium Level 8.5mg/dL (8.5-10.1) Total Bilirubin 0.4mg/dL (0.0-1.2) Aspartate Amino Transf (AST/SGOT) 15U/L (0-50) Alanine Aminotransferase (ALT/SGPT) 16U/L (0-44) Alkaline Phosphatase 102U/L (25-150) Total Protein 5.4g/dL (6.4-8.4) Albumin 3.6g/dL (3.4-5.0) Vancomycin Level Trough 18.3mcg/mL Microbiology Results CHELSIE CULT URINE Final 01/05/17-57 Organism 1 KLEBSIELLA PNEUMONIAE U COLONY COUNT/QUANTITY >100,000 CFU/ml Cefazolin-predicts results for the oral agents, cefaclor,cefdinir, cefpodoximen, cefprozil, cefuroximne axetil, cephalexin and loracarbed when used for therapy of uncomplicated UTI's due to E. coli, K. pneumoniae, and Proteus mirabilis. Cefpodoxime, cefdinir and cefuroxime axetil may be tested individually because some isolates may be susceptible to these agents while testing resistant to cefazolin. (CLSI V016-B02 pg 53) 1. KLEBSIELLA PNEUMONIAE M.I.C Interp --------- ------ * AMOXICILLIN/CLAVULATE <=2 S * AMPICILLIN >=32 R * CEFAZOLIN (CEPHALOSPORIN) UTI 4 S * CEFEPIME <=1 S * CEFTRIAXONE <=1 S * CEFUROXIME SODIUM 2 S * CIPROFLOXACIN <=0.25 S * ERTAPENEM <=0.5 S * GENTAMICIN <=1 S * IMIPENEM <=1 S * LEVOFLOXACIN <=0.12 S * NITROFURANTOIN 64 I * TETRACYCLINE <=1 S * TOBRAMYCIN <=1 S * TRIMETHOPRIM/SULFAMETHOXAZOLE <=20 S Discharge Medications Discharge Medications Baclofen (Baclofen) 10 Mg Tablet 20 MG PO afternoon, evening (Reported) Baclofen (Baclofen) 10 Mg Tablet 30 MG PO morning, night (Reported) Bisacodyl (Bisacodyl Rectal) 10 Mg/30 Ml Enema 10 MG RC DAILY (Reported) Ciprofloxacin (Cipro) 500 Mg Tablet 500 MG PO BID Prescribed by: LUIS A SRIVASTAVA MD Docusate Sodium (Colace) 100 Mg Capsule 100 MG PO BID (Reported) Morphine Sulfate ER (Morphine Sulfate ER) 15 Mg Tablet.er 15 MG PO Q8H (Reported ) Oxybutynin Chloride ER (Oxybutynin Chloride ER) 15 Mg Tab.er.24 10 MG PO BID ( Reported) Pantoprazole DR (Pantoprazole DR) 20 Mg Tablet.dr 20 MG PO DAILY (Reported) Paroxetine (Paroxetine) 20 Mg Tablet 20 MG PO noon (Reported) Sennosides (Senna) 8.6 Mg Tablet 8.6 MG PO HS (Reported) Trazodone (Trazodone) 50 Mg Tablet 50 MG PO HS (Reported) Followup Plan Disposition: home with Follow-up plan Please follow-up with podiatry Dr Romero on Thursday01/07/17 2:45 PM. Discharge Diet: No restrictions Discharge Activity: No restrictions Patient Instructions you were hospitalized due to osteomyelitis/infection of bone. You underwent Amputation right fifth toe and partial fifth metatarsal with primary closure on 01/04/17. Please follow-up with Dr. Romero on Thursday01/07/17 2:45 PM. you also had UTI. Ciprofloxacin for 3 more days prescribed. No need for long-term antibiotics for your bone infection as per podiatry Dr. Romero. Follow-up Provider: Fozia Lares MD Follow-up with PCP in: 1 week Provider: Lashaun Romero DPM Follow-up in: 1 week Time spent 40 minutes copies to: Lashaun Romero DPM; Fozia Lares MD, Melaku MD Jan 05, 2017 12:42 Luis A Srivastava MD Jan 05, 2017 12:42
--- NOTE | 2017-01-05 12:46 | NUR ---
Social Work: Initial Assessment Data & Assessment: See Initial Assessment. EMR Reviewed. Patient is a 36 year old male that admitted on 01/03/17 due to UTI and Osteomyelitis per H& P. Electro Mechanic met with patient at bedside to complete initial assessment, Social Work role explained and discharge planning discussed. Advanced directives were discussed and patient declined information. Patient confirmed that his PCP is Dr. Aman Lares. Patient's insurance is Medicare and [facility] as secondary. Patient does not have any LTC or VA benefits. Patient has a re-admit score of 5 high risk. Patient reports that he is uses a Wheel-chair at baseline. Patient reports no HH history and no SNF history. Patient lives at home alone and has [facility] from [place]. SW provided patient with a choice list for HH. Patient does not have a preference. SW referred to the rotating vendor calendar and referred patient to [facility]. SW provided phone number and plan on white board in room. SW will continue to follow Plan: Pt to likely discharge home with [facility] for home care attendant. SW will continue to follow. Alfonzo Levy LMSW, CARLOS Addendum: 01/05/17 at 1254 by ALFONZO POWERS Amended: Links added.
[2017-01-05] MEDS: PARoxetine 20 mg Tablet PO SCH (12:47)
[2017-01-05 13:20] VITALS: BP 106/58; PULSE 70; RESP 18; O2SAT 95
--- NOTE | 2017-01-05 15:39 | NUR ---
POST-OP PROGRESS/DISCHARGE Scheduled Morphine has been adequate for pain control. Patient was mainly complaining of spasms and not pain. Tolerating liquids PO. Poor appetite. Denies nausea. No emesis noted at this time. Denies SOB. Patient has been turning independently in bed. Dressing is CDI. IV saline lock d/cd. IFC d/cd prior to discharge. Patient self caths at home. + BM this morning. Discharge instructions, care notes and prescription was given to the patient and she verbalized understanding. Discharged to home with his father and all his personal belongings. (Copy of D/C is in the chart). Addendum: 01/05/17 at 1559 by CLARA FIERRO RN [facility] has been set-up for the patient by PRIYA.
--- NOTE | 2017-01-09 11:25 | PATH ---
SURGICAL PATHOLOGY Attending Physician:Lashaun Romero CASE STATUS: Signed Out PATIENT NAME: MARIA A KING PID: [id number] : 1980 DATE COLLECTED:01/04/2017 00:00 SPECIMEN: Toe(s), Amputation, Non-Traumatic CLINICAL HISTORY: OSTEOMYELITIS 1). RIGHT 5TH METATARSAL/TOE FINAL DIAGNOSIS: 1.RIGHT FIFTH METATARSAL/TOE: TOE AMPUTATION WITH CORTICAL EROSION AND FOCAL OSTEOMYELITIS. NO EVIDENCE OF MALIGNANCY. ICD10 CODE M86.9 GROSS DESCRIPTION: The specimen is received in formalin, labeled with the patient's name, sublabeled as right 5th toe and consists of a resected toe (6.5 cm AP, 2.1 cm SI, 2.3 cm ML). The toenail is present. The skin is mills-white smooth shiny and unremarkable. The bone is hard and cannot be sliced with a scalpel. The bone cut surface is mills and focally dark. No nodules, masses or lesions are identified. Ink code: blue-resection margin; black-superior; orange-inferior; green-medial; blue-lateral. Section code: (A) skin and soft tissue resection margins; (B) bone resection margin; (C) bone, serially sectioned, technical sales representative. Note: The bone sections have been decalcified. 01/06/17 MICRO DESCRIPTION: See diagnosis. ICD-9 CODES: CPT CODES: 1: 24368 Electronically Signed Out Cheli Winkler MD [facility] [address], [place] [address] Technical component performed at [facility], [address] [place] [address] Ave[address], [place], [address]
[2017-02-27] MEDS ORDERED: GABA-502 PO (15:57)
[2017-02-27] MEDS ORDERED: GABA600T2 PO (15:57)
[2017-02-27] MEDS ORDERED: ONDA4TAB6 PO (15:57)
[2017-02-27] MEDS ORDERED: SENN1TAB90 PO (15:57)
[2017-02-27] MEDS ORDERED: SULF1TAB34 PO (15:57)
== END 2017-01-05 15:59 | disposition home health service (06) | DRG 504 ==
LOC: SED 16:00 → OSC 19:42
PROVIDERS: ADMIT Specialist; ATTEND Specialist
PROC: 0Y6X0Z2 Detachment at Right 5th Toe, Mid, Open Approach (ICD-10-PCS; principal; 2017-01-04 09:30)
DX: M86.171 Other acute osteomyelitis, right ankle and foot (principal); G82.20 Paraplegia, unspecified; N39.0 Urinary tract infection, site not specified; M62.830 Muscle spasm of back; N31.9 Neuromuscular dysfunction of bladder, unspecified; K21.9 Gastro-esophageal reflux disease without esophagitis; K59.00 Constipation, unspecified; F32.9 Major depressive disorder, single episode, unspecified; F41.9 Anxiety disorder, unspecified; L89.899 Pressure ulcer of other site, unspecified stage; B96.1 Klebsiella pneumoniae [K. pneumoniae] as the cause of diseases classified elsewhere

== ENCOUNTER 2017-03-04 12:16 | Day surgery (SDC) | payer MEDICARE, MEDICAID ==
[~2017-03-04] VITALS: Ht 182.9 cm; Wt 98.8 kg
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
[~2017-03-04 12:16] MED LIST changes: +CeFAZolin Inj 2 GM in IV Premix 1 EACH IV SCH; -DIAZ5TAB3 PO; +GABA600T2 PO; +ONDA4TAB6 PO; -OXYC10TA8 PO; +SENN1TAB90 PO; +SULF1TAB34 PO; -VANC750V IV
[2017-03-04] MEDS ORDERED: fentaNYL-PF 50 mCg/mL 2 mL Inj ONE (12:17)
[2017-03-04] MEDS ORDERED: Propofol 10,000 mCg/mL 20 mL Inj ONE (12:17)
[2017-03-04 12:46] VITALS: BP 109/67; PULSE 73; RESP 16; O2SAT 96
[2017-03-04] MEDS: Lactated Ringer's 1,000 ML IV SCH ×2 (12:55→13:16)
[2017-03-04] MEDS ORDERED: Botulinum Toxin Type-A 100 unit Inj IM ONE (13:00)
[2017-03-04] MEDS ORDERED: Botulinum Toxin Type-A Inj 200 unit Inj IM ONE (13:00)
[2017-03-04] MEDS ORDERED: OXYC5CAP4 PO (13:06)
[2017-03-04] MEDS ORDERED: Lactated Ringer's 500 ML IV PRN (13:33)
[2017-03-04] MEDS ORDERED: Lactated Ringer's 1,000 ML IV SCH (13:33)
[2017-03-04] MEDS ORDERED: 0.9% Sodium Chloride 10 mL Inj INJ ONE (13:34)
[2017-03-04] MEDS ORDERED: MetoCLOpramide 5 mg/mL 2 mL Inj IVPUSH PRN (13:35)
[2017-03-04] MEDS ORDERED: Ondansetron 2 mg/mL 2 mL Inj IVPUSH PRN (13:35)
[2017-03-04] MEDS ORDERED: HYDROmorphone 1 mg/mL Inj IVPUSH PRN (13:35)
[2017-03-04] MEDS ORDERED: Dexamethasone 4 mg/mL Inj IVPUSH PRN (13:35)
[2017-03-04] MEDS ORDERED: Phenylephrine 10,000 mCg/mL Inj IVPUSH PRN (13:35)
[2017-03-04] MEDS ORDERED: fentaNYL-PF 50 mCg/mL 2 mL Inj IVPUSH PRN (13:35)
[2017-03-04] MEDS ORDERED: EPHEDrine Sulfate 50 mg/mL Inj IVPUSH PRN (13:35)
[2017-03-04 13:58] VITALS: BP 100/55; PULSE 73; RESP 16; O2SAT 94
[2017-03-04] MEDS ORDERED: Ondansetron 8 mg ODT Tablet PO PRN (14:00)
[2017-03-04] MEDS ORDERED: HYDROcodone-APAP 5-325 mg Tablet PO PRN (14:00)
--- NOTE | 2017-03-04 14:02 | PCM.ANEP1 ---
Post Anesthesia Phase 1 PACU Phase 1 Assessment Vital Signs Vital Signs Date Time Temp Pulse Resp B/P Pulse Ox O2 Delivery O2 Flow Rate FiO2 03/04/17 12:46 36 73 16 109/67 96 Room Air Anesthetic Administered: MAC Level of Alertness: Awake, talking Pain: No Nausea or Vomiting: No Cardiovascular Function and Hy: Yes Oxygen Delivery: Room Air Lungs: Normal Air Movement Dermatome Level: Full Sensation Complications: No Follow up Care: No Edy Burkett MD March 04, 2017 14:02
[2017-03-04 14:24] VITALS: BP 100/55; PULSE 73; RESP 14; O2SAT 94
[2017-03-04 14:29] VITALS: BP 135/79; PULSE 51; RESP 14; O2SAT 99
--- NOTE | 2017-03-05 09:29 | OP ---
[address] [address] OPERATIVE REPORT PATIENT: MARIA A KING : 1980 MR#: [id number] ADMIT: 03/04/2017 JOB ID: [id number] DATE OF SURGERY: 03/04/2017 SURGEON: Kathie Pak MD PREOPERATIVE DIAGNOSIS(ES): 1. Neurogenic bladder. 2. Urge incontinence. 3. Spinal cord injury. POSTOPERATIVE DIAGNOSIS(ES): 1. Neurogenic bladder. 2. Urge incontinence. 3. Spinal cord injury. PROCEDURE: Cystoscopy with Botox injection 300 units. ANESTHESIA: General. INDICATIONS: The patient is a 36-year-old gentleman with a history of thoracic spinal cord injury and paraplegia, neurogenic bladder managed with intermittent catheterization, and anticholinergics also treated with the Botox in the past to prevent leakage in between catheterizations, now presenting for further Botox injection. PROCEDURE IN DETAIL: After appropriate informed consent was obtained, the patient was brought to the operating room. He received IV antibiotics prior to the procedure. He was carefully placed in dorsal lithotomy position. All pressure points carefully padded. Cleaned, prepped, and draped in the usual sterile fashion. Rigid scope was introduced into the patient's bladder which is noted to be mild to moderately trabeculated. We used 300 units of botulinum toxin in 30 cc of normal saline. This was injected in 1 to less than 1 mL at a time for a total of 30-40 injections. This was spread throughout the patient's bladder staying clear of the ureteral orifices in the trigone. There was minimal bleeding. He tolerated procedure very well. The scope was withdrawn and a Jack catheter was placed. Left to gravity drainage. He was awakened and taken in stable condition to the postanesthesia care unit.
== END 2017-03-04 23:59 | disposition home or self-care (01) ==
LOC: SAS 12:16
PROVIDERS: ATTEND Urology
DX: N31.9 Neuromuscular dysfunction of bladder, unspecified (principal); N39.41 Urge incontinence; G82.20 Paraplegia, unspecified; R33.9 Retention of urine, unspecified; Z86.69 Personal history of other diseases of the nervous system and sense organs; F32.9 Major depressive disorder, single episode, unspecified; K21.9 Gastro-esophageal reflux disease without esophagitis; G47.00 Insomnia, unspecified; G89.4 Chronic pain syndrome; Z99.3 Dependence on wheelchair; Z87.891 Personal history of nicotine dependence
CPT/HCPCS: 52287; J0585; J0690; J2250; J3010; J7120

== ENCOUNTER 2017-03-20 18:15 | Inpatient (IN) | payer MEDICARE, MEDICAID ==
[~2017-03-20] VITALS: Ht 182.9 cm; Wt 96.7 kg
[~2017-03-20 18:15] MED LIST changes: -CeFAZolin Inj 2 GM in IV Premix 1 EACH IV SCH; -GABA-502 PO; -GABA600T2 PO; +OXYC5CAP4 PO; -SENN1TAB90 PO; -SULF1TAB34 PO
[2017-03-20 18:17] VITALS: BP 133/75; PULSE 112; RESP 20; O2SAT 96
[2017-03-20] MEDS ORDERED: Ondansetron 2 mg/mL 2 mL Inj ONE (18:27)
[2017-03-20 19:09] LABS: BASOPHILS % (AUTO) 0.1 % (0-3); EOSINOPHILS % (AUTO) 0.1 % (0-5); MONOCYTES % (AUTO) 4.3 % (4-12); Mean Corpuscular Hemoglobin 29.5 pg (27.0-35.0); Mean Corpuscular Volume 83.4 fL (81-100); NEUTROPHILS % (AUTO) 91.7 % (40-74); Platelet Count 241 bil/L (150-400)
[2017-03-20 19:21] VITALS: BP 117/70; PULSE 85; RESP 15; O2SAT 95
[2017-03-20 19:21] LABS: TROPONIN T < 0.010 ug/L (0.0-0.011)
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
[2017-03-20 19:30] VITALS: BP 94/60; PULSE 69; RESP 17; O2SAT 93
[2017-03-20 19:30] LABS: Magnesium 1.9 mg/dL (1.6-2.6)
[2017-03-20 19:49] LABS: APPEARANCE,URINE CLOUDY (CLEAR,HAZY); COLOR,URINE DARK YELLOW (YELLOW); OCCULT BLOOD,URINE LARGE (NEGATIVE); UROBILINOGEN,URINE NORMAL (NORMAL)
[2017-03-20 20:20] VITALS: BP 111/66; PULSE 74; RESP 18; O2SAT 96
[2017-03-20] MEDS ORDERED: cefTRIAXone Inj 1,000 MG in Dextrose 5% Minibag Plus 50 ML IV ONE (20:30)
[2017-03-20 21:53] VITALS: BP 121/67; PULSE 88; RESP 24; O2SAT 97
--- NOTE | 2017-03-20 21:55 | DRSVH ---
PROCEDURE: US RENAL SONOGRAM INDICATIONS: URO SEPSIS, ?PYELO TECHNIQUE: Real-time scanning was performed of the kidneys and bladder, with image documentation. COMPARISON: None. FINDINGS: Kidneys: Kidneys are normal in size. Right kidney measures 11.1 cm long; left kidney measures 11.8 cm long. Right renal cortical thickness is 1.9 cm; left renal cortical thickness is 1.4 cm. Renal c ortical echotexture is normal. No hydronephrosis or nephrolithiasis. No suspicious solid mass lesio ns. Bladder: Bladder is decompressed with a Jack catheter in place. Miscellaneous: No free pelvic fluid. IMPRESSION: Normal renal ultrasound. Dictated by: Waqar Pennington M.D. on 03/20/2017 at 21:52 Approved by: Waqar Pennington M.D. on 03/20/2017 at 21:54
[2017-03-20] MEDS ORDERED: Polyethylene Glycol (PEG) 17 Gm Powder PO PRN (22:00)
[2017-03-20] MEDS ORDERED: Ondansetron 2 mg/mL 2 mL Inj IVPUSH PRN (22:00)
[2017-03-20] MEDS ORDERED: Alum-Mag Hydrox-Simeth 30 mL Suspension PO PRN (22:00)
[2017-03-21] VITALS (7 sets, daily range): BP systolic 101–111; BP diastolic 57–76; PULSE 54–101; RESP 16–18; O2SAT 94–97
[2017-03-21] MEDS ORDERED: 0.9% Sodium Chloride 1,000 ML IV SCH (01:14)
[2017-03-21] MEDS ORDERED: Alum-Mag Hydrox-Simeth 30 mL Suspension PO PRN (01:15)
[2017-03-21] MEDS ORDERED: Polyethylene Glycol (PEG) 17 Gm Powder PO PRN (01:15)
--- NOTE | 2017-03-21 01:35 | NUR ---
Admit note Pt arrived from ED on stretcher with all belongings including WC, aides help move from stretcher to bed. Pt alert and oriented x 4, pleasant and cooperative. Oriented to room, bed, and remote. Given scheduled medications. Will monitor.
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
[2017-03-21] MEDS: Tolterodine ER 4 mg ER24 Capsule PO SCH ×2 (07:55→20:20)
[2017-03-21] MEDS: Sodium Chloride LOK Flush 10 mL Syringe IVFLUSH SCH ×2 (07:56→15:54)
[2017-03-21] MEDS: Pantoprazole 20 mg ER24 Tablet PO SCH (07:56)
[2017-03-21] MEDS: Morphine ER 15 mg (MS Contin) Tablet PO SCH ×2 (07:58→15:54)
[2017-03-21] MEDS ORDERED: cefTRIAXone Inj 2,000 MG in Dextrose 5% Minibag Plus 50 ML IV SCH (08:30)
[2017-03-21] MEDS ORDERED: BACL10TA PO (10:10)
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
--- NOTE | 2017-03-21 12:05 | NUR ---
Inpatient status effective today. MAGED signed.
[2017-03-21] MEDS: PARoxetine 20 mg Tablet PO SCH (13:49)
--- NOTE | 2017-03-21 15:06 | NUR ---
Bowel Pt requiring hourly digital stimulation after suppository in order to have a BM. MD aware. Pt assists with turning. BM had on shift.
--- NOTE | 2017-03-21 22:18 | NUR ---
activity Pt alert and oriented x 4, cooperative and pleasant. Asked for evening Roxicodone for pain in back, with good results. Pt eating evening snack, no noted nausea or discomfort.
[2017-03-22] MEDS: Sodium Chloride LOK Flush 10 mL Syringe IVFLUSH SCH ×3 (00:30→16:19)
[2017-03-22] MEDS: Morphine ER 15 mg (MS Contin) Tablet PO SCH ×3 (00:30→16:19)
--- NOTE | 2017-03-22 05:20 | NUR ---
Behavior Patient has remained in bed all night other then bathroom use. Patient has remained calm, listening to music, watching movies on computer. Patient up late but is currently sleeping.
[2017-03-22 05:32] VITALS: BP 114/77; PULSE 63; RESP 16; O2SAT 96
[2017-03-22] MEDS: Ertapenem Inj 1,000 MG in 0.9% Sodium Chloride 50 ML IV SCH (07:58)
[2017-03-22] MEDS: Tolterodine ER 4 mg ER24 Capsule PO SCH ×2 (08:01→21:01)
[2017-03-22] MEDS: Pantoprazole 20 mg ER24 Tablet PO SCH (08:01)
[2017-03-22] MEDS: Ondansetron 2 mg/mL 2 mL Inj IVPUSH PRN (08:37)
--- NOTE | 2017-03-22 08:39 | NUR ---
Nausea Pt c/o nausea. IV 8mg Zofran administered. 4mg given yesterday which were minimally effective. Will continue to monitor. Addendum: 03/22/17 at 1909 by VERONA MERAZ RN Pt stated to be too sick to his stomach for breakfast and lunch. Ate dinner. State to be feeling much better. IVF initiated d/t poor oral intake.
--- NOTE | 2017-03-22 09:25 | NUR ---
MAGED signed IDALIA Pa
[2017-03-22 09:58] VITALS: BP 115/68; PULSE 50; RESP 16; O2SAT 96
--- NOTE | 2017-03-22 11:33 | NUR ---
Social Work: Initial Assessment Data: Pt is a 36 y/o male admitted for sepsis, UTI. Pt's PCP is Dr Lares, pt's insurance is Medicare with [facility] supp. EMR reviewed. Readmit score is 5. [employer] M[employer] HAND met with pt at bedside, role explained. Pt states that he lives alone in [place] in a single story home, pt is wheel chair bound. Pt has NATALIA, case packer and sealer is Paul Lui. [employer] requested UR specialist to fax clinicals to NATALIA. Pt drives, has hx with [facility], has hx at [facility], does not have LTC or VA benefits. Pt reports having enough support at home and feels he does not need more support. [employer] will continue to follow for possible d/c planning needs. Assessment: Pt who has NATALIA, wheel chair bound. Plan: Pt will d/c home via POV when medically stable. Pt reports having enough support at home and feels he does not need more support. [employer] will continue to follow for possible d/c planning needs. IDALIA Pa Addendum: 03/22/17 at 1136 by BRADLEY VANEGAS Amended: Links added.
[2017-03-22] MEDS: PARoxetine 20 mg Tablet PO SCH (11:51)
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
[2017-03-22] MEDS: Dextrose 5% 0.45% NaCl 1,000 ML IV SCH (12:30)
[2017-03-22 13:41] VITALS: BP 105/61; PULSE 57; RESP 16; O2SAT 98
[2017-03-22 20:10] VITALS: BP 118/63; PULSE 55; RESP 14; O2SAT 96
[2017-03-23] MEDS: Sodium Chloride LOK Flush 10 mL Syringe IVFLUSH SCH ×3 (00:28→16:11)
[2017-03-23] MEDS: Morphine ER 15 mg (MS Contin) Tablet PO SCH ×3 (00:28→17:33)
[2017-03-23] MEDS: Dextrose 5% 0.45% NaCl 1,000 ML IV SCH ×2 (00:30→14:45)
--- NOTE | 2017-03-23 05:15 | NUR ---
NOC shift note Patient reported that he is feeling better, but not quite to his normal yet- still has generalized malaise and decreased appetite. Denies nausea. Very small, mucousy bowel movement last night. Jack draining to gravity. Pleasant and cooperative with staff. Able to turn self in bed with minimal assistance for pillow and cover placement. Alert and oriented, using call light appropriately for needs, and intentional rounding in place.
[2017-03-23 05:29] VITALS: BP 99/63; PULSE 63; RESP 16; O2SAT 97
[2017-03-23] MEDS: Tolterodine ER 4 mg ER24 Capsule PO SCH ×2 (08:54→23:15)
[2017-03-23] MEDS: Pantoprazole 20 mg ER24 Tablet PO SCH (08:54)
[2017-03-23] MEDS: Ertapenem Inj 1,000 MG in 0.9% Sodium Chloride 50 ML IV SCH (08:54)
[2017-03-23] MEDS: Ondansetron 2 mg/mL 2 mL Inj IVPUSH PRN (09:58)
--- NOTE | 2017-03-23 10:23 | NUR ---
Emesis Emesis times 3, pt initially declined offer of anti emetic. This RN offered again, pt accepted. 8 mg IV zofran given, with decreased nausea. Clear soda, chicken broth and ice water at bedside per request from pt. Pt resting quietly. Call light in reach, will continue to monitor.
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
[2017-03-23 12:37] VITALS: BP 108/61; PULSE 60; RESP 16; O2SAT 97
[2017-03-23] MEDS: PARoxetine 20 mg Tablet PO SCH (12:58)
--- NOTE | 2017-03-23 14:20 | NUR ---
Social Work-readiness for discharge: Data:EMR reviewed. pt is on day 3 of hospitalization for Sepsis per H&P. Pt is not medically stable anticipate 1-2 more days. Pt resides at home alone with NATALIA caregiving assisting. Pt is w/c bound at baseline. No anticipated discharge needs. SW will continue to follow if needs arise. Assessment:Pt who has [employer]ALIA caregivers. Plan:Pt to discharge home when medically stable via POV. Pt to continue with NATALIA caregivers at home. No anticipated discharge needs. SW will continue to follow if needs arise. IDALIA Boggs
[2017-03-23 20:53] VITALS: BP 104/55; PULSE 78; RESP 16; O2SAT 96
[2017-03-24] MEDS: Sodium Chloride LOK Flush 10 mL Syringe IVFLUSH SCH ×2 (00:06→08:30)
[2017-03-24] MEDS: Morphine ER 15 mg (MS Contin) Tablet PO SCH ×2 (00:30→08:48)
[2017-03-24] MEDS: Dextrose 5% 0.45% NaCl 1,000 ML IV SCH (04:05)
[2017-03-24 04:33] VITALS: BP 100/65; PULSE 67; RESP 16; O2SAT 97
--- NOTE | 2017-03-24 04:34 | NUR ---
Pain/NOC Note: Pt c/o back pain 03/04; medication administered; effective. At HS pt stated that he did not want his 0030 scheduled Morphine unless he requested it; at this hour pt has not asked for it and has been sleeping most of the night. Pt very talkative and interactive, states he is feeling better. Pt refused bowel medication due to hospital not having a padded BSC, pt stated he woud be discharging tomorrow and would go back on his home regimen which works better then hospital bowel program. Pt slept most of the night, pleasant and cooperative with care.
[2017-03-24] MEDS ORDERED: cefTRIAXone Inj 2,000 MG in Dextrose 5% Minibag Plus 50 ML IV SCH (08:00)
[2017-03-24] MEDS: Pantoprazole 20 mg ER24 Tablet PO SCH (08:39)
[2017-03-24] MEDS: Tolterodine ER 4 mg ER24 Capsule PO SCH (08:40)
[2017-03-24] MEDS: PARoxetine 20 mg Tablet PO SCH (11:11)
[2017-03-24 11:20] VITALS: BP 119/79; PULSE 63; RESP 12; O2SAT 97
--- NOTE | 2017-03-24 11:47 | PCM.DIMED ---
Discharge Instructions Date of Service March 24, 2017 Dates of Hospitalization March 20, 2017 at 22:10 Discharge Diagnosis Discharge Diagnosis UTI Diet Discharge Diet: No restrictions Activity Discharge Activity: No restrictions Patient Instructions Follow-up with PCP in: 2 weeks Angelique Flores MD March 24, 2017 11:47
[2017-03-24] MEDS ORDERED: CEPH-512 PO (11:51)
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
--- NOTE | 2017-03-24 13:49 | NUR ---
Faxed referral to [facility] Office per [employer]DER
--- NOTE | 2017-03-24 13:55 | NUR ---
Discharge Pt was d/c home (alone), leaving on own wc at 1350, transported out by a SRN. IV and brady d/c prior to leaving. Pt denied pain. Discharge teaching provided, pt denied having questions. Emphasis made on the importance of completing the course of antibiotics and maintaining a good oral fluid intake. All personal belongings left with pt, VSS.
--- NOTE | 2017-03-24 14:57 | NUR ---
Social Work: Discharge Data: EMR reviewed. Pt is on day 4 of hospitalization for Sepsis per H&P. Pt will discharge home today per MD. Pt resides at home alone with [employer] caregiving assisting. Pt is w/c bound at baseline. No anticipated discharge needs. SW will continue to follow if needs arise. Assessment:Pt who has [employer]ALIA caregivers. Plan:Pt will discharge home today via POV. Pt to continue with [employer]ALIA caregivers at home. No anticipated discharge needs. SW will continue to follow if needs arise. IDALIA Escobedo
== END 2017-03-24 13:37 | disposition home or self-care (01) | DRG 872 ==
LOC: SED 18:15 → MPC 22:10 → OBSVTOIN 22:10 → MPC 23:44
PROVIDERS: ADMIT Internal Medicine; ATTEND Internal Medicine
DX: A41.9 Sepsis, unspecified organism (principal); N39.0 Urinary tract infection, site not specified; G82.20 Paraplegia, unspecified; R31.9 Hematuria, unspecified; K21.9 Gastro-esophageal reflux disease without esophagitis; N31.9 Neuromuscular dysfunction of bladder, unspecified; F41.8 Other specified anxiety disorders; I10 Essential (primary) hypertension; B96.20 Unspecified Escherichia coli [E. coli] as the cause of diseases classified elsewhere; Z16.11 Resistance to penicillins; Z16.29 Resistance to other single specified antibiotic

== ENCOUNTER 2017-06-21 11:03 | Observation (INO) | payer MEDICARE, MEDICAID ==
[~2017-06-21] VITALS: Ht 182.9 cm; Wt 98.5 kg
[~2017-06-21 11:03] MED LIST changes: +CEPH-512 PO
[2017-06-21 11:26] VITALS: BP 113/65; PULSE 60; RESP 14; O2SAT 97
[2017-06-21] MEDS ORDERED: 0.9% Sodium Chloride 1,000 ML IV ONE ×2 (11:55→14:20)
[2017-06-21 12:01] VITALS: BP 111/66; PULSE 53; RESP 14; O2SAT 96
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
[2017-06-21 12:54] LABS: APPEARANCE,URINE CLEAR (CLEAR,HAZY); COLOR,URINE YELLOW (YELLOW); OCCULT BLOOD,URINE NEGATIVE (NEGATIVE); UROBILINOGEN,URINE NORMAL (NORMAL)
[2017-06-21] MEDS ORDERED: cefTRIAXone Inj 2,000 MG in Dextrose 5% Minibag Plus 50 ML IV ONE (13:05)
[2017-06-21 13:47] LABS: Mean Corpuscular Hemoglobin 29.5 pg (27.0-35.0); Mean Corpuscular Volume 88 fL (81-100)
[2017-06-21 13:48] LABS: BASOPHILS % (AUTO) 0 % (0-3); EOSINOPHILS % (AUTO) 4 % (0-5); MONOCYTES % (AUTO) 2 % (4-12); NEUTROPHILS % (AUTO) 86 % (40-74); Platelet Count 108 bil/L (150-400)
[2017-06-21 14:09] VITALS: BP 109/59; PULSE 58; RESP 18; O2SAT 98
[2017-06-21] MEDS ORDERED: Ondansetron 2 mg/mL 2 mL Inj IVPUSH ONE (14:15)
[2017-06-21] MEDS ORDERED: Polyethylene Glycol (PEG) 17 Gm Powder PO PRN (14:45)
[2017-06-21] MEDS ORDERED: Alum-Mag Hydrox-Simeth 30 mL Suspension PO PRN (14:45)
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
[2017-06-21] MEDS: Morphine ER 15 mg (MS Contin) Tablet PO SCH ×2 (15:35→23:35)
[2017-06-21 15:42] VITALS: BP 128/75; PULSE 64; RESP 16; O2SAT 97
[2017-06-21 15:55] VITALS: BP 111/74; PULSE 58; RESP 16; O2SAT 97
[2017-06-21] MEDS ORDERED: DOCU-41 PO (16:06)
[2017-06-21] MEDS ORDERED: IBUP200C PO (16:10)
--- NOTE | 2017-06-21 17:20 | NUR ---
Admission patient arrived to [facility] rm [id number] at 1540hrs today. patient A&Ox3, denies pain, reports mild nausea and "feeling cruddy". admission and medication reconciliation completed.
[2017-06-21] MEDS: Ondansetron 2 mg/mL 2 mL Inj IVPUSH PRN (17:37)
[2017-06-21 19:48] VITALS: BP 98/51; PULSE 66; RESP 18; O2SAT 95
[2017-06-21] MEDS: 0.9% Sodium Chloride 1,000 ML IV SCH (21:46)
[2017-06-22 02:51] VITALS: BP 117/69; PULSE 52; RESP 18; O2SAT 97
--- NOTE | 2017-06-22 05:57 | NUR ---
GI Pt unable to take in enough PO fluids due to this causing him increased nausea. MD called and order for IVF obtained. Pt denies any pain, able to move self in bed.
[2017-06-22 06:09] LABS: Mean Corpuscular Hemoglobin 29.6 pg (27.0-35.0); Mean Corpuscular Volume 88 fL (81-100); NEUTROPHILS % (AUTO) 65.6 % (40-74); Platelet Count 226 bil/L (150-400)
[2017-06-22 06:10] LABS: BASOPHILS % (AUTO) 0.4 % (0-3); EOSINOPHILS % (AUTO) 1.8 % (0-5); MONOCYTES % (AUTO) 9 % (4-12)
[2017-06-22] MEDS ORDERED: BISA10SU61 RC (08:27)
[2017-06-22] MEDS: Morphine ER 15 mg (MS Contin) Tablet PO SCH ×2 (08:30→15:59)
[2017-06-22] MEDS: Tolterodine ER 4 mg ER24 Capsule PO SCH (08:30)
[2017-06-22 08:33] VITALS: BP 123/71; PULSE 61; RESP 16; O2SAT 96
[2017-06-22] MEDS: Pantoprazole 20 mg ER24 Tablet PO SCH (08:47)
[2017-06-22] MEDS: 0.9% Sodium Chloride 1,000 ML IV SCH ×2 (08:48→15:49)
--- NOTE | 2017-06-22 09:55 | NUR ---
Wheelchair Problem/Room Limitation Pt wheelchair pad has a hole. Pt has difficulty w/ bm and uses w/c and digitally removes the stool, but this process takes a long time, pt states 2 hours, so lack of pad is concerning for pressure sore risk r/t paraplegia and lack of any sensation. Central supply doesn't appear to have any suitable replacements, will be contacting supplier to see about getting a new one. Pt is also requesting a shower, but the shower here cannot accommodate for a wheelchair, so we will try to take to [facility] to use their shower.
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
--- NOTE | 2017-06-22 12:10 | NUR ---
Transfer to [facility] Report Received from Bunny MCNEILL [place] [facility] Pt brought up to unit/room via bed, belongings including home WC in room. Continuing with care.
--- NOTE | 2017-06-22 12:35 | NUR ---
Transfer to [facility] Pt transferred to [facility] 3020 at 1150 r/t shower accessibility, report given to Suzie Fierro RN.
[2017-06-22] MEDS: PARoxetine 20 mg Tablet PO SCH (12:46)
[2017-06-22] MEDS ORDERED: cefTRIAXone Inj 2,000 MG in Dextrose 5% Minibag Plus 50 ML IV SCH (13:30)
--- NOTE | 2017-06-22 14:56 | NUR ---
Case Management: FONTANE[employer] and Medicare Part D pamphlet delivered and charted. Signed original placed in chart. Copy left at bedside. Pili Murillo RN
[2017-06-22] MEDS: Heparin 5,000 Unit/mL Inj SUBQ SCH (15:46)
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
--- NOTE | 2017-06-22 16:31 | NUR ---
Social Work-initial assessment/ readiness for discharge: Data:See initial assessment. Pt is a 36 y/o male who was admitted on 06/21/17 for UTI per H&P. Pt's insurance is [facility] and [facility] supp and PCP is Aman Lares MD. EMR reviewed. SW met with pt at bedside, SW role explained. Pt is alert and oriented x3. Pt resides at home alone in a ground level apartment where he remains independent with basic ADLs. Pt does not drive and uses a w/c at baseline. Pt has had HH and has been to [facility] in the past. Pt has no penitentiary care insurance or VA benefits. SW discussed DPOA/ advanced directive, pt has not completed this and is declining any information. Pt confirms he has caregivers everyday through [employer] and his CM is Aftab Kelley, updated clinicals faxed. Pt does not have capacity for self care, due to having caregiver assistance. SW provided pt with discharge planning checklist and encouraged him to call with any questions,phone number provided on white board in room. Pt states his friend will provide transport home. No anticipated discharge needs. SW will continue to follow if needs arise. Assessment:pt who is independent at baseline. Plan:Pt to discharge home when medically stable via POV. pt continue with [employer] caregivers at home. No anticipated discharge needs. SW will continue to follow if needs arise. IDALIA Boggs Addendum: 06/22/17 at 1635 by LIYAH PRITCHETT SS Amended: Links added.
[2017-06-22 16:41] VITALS: BP 108/63; PULSE 52; RESP 16; O2SAT 97
--- NOTE | 2017-06-22 18:17 | NUR ---
Nausea/Pain Pt reports continual back pain around 02/02. Declines any pain medication, reports being concerned about becoming constipated d/t paraplegia. Pt did report that he would be willing to take Ibuprofen. paged for request and granted. Pt had nausea with dry heaving several times during shift. Declined Zofran medication states it makes his stomach feel more upset. Encouraged pt to sit up to reduce GI discomfort/nausea. Pt states he is worried about developing Pressure ulcers. Educated pt about PU risks and how sitting up may improve comfort. Skin checks showed no redness on sacrum area. Nausea later partially resolved. Addendum: 06/22/17 at 1855 by DALILA WISE RN Pt did have minimal emesis late during day shift. Mostly watery, pt had minimal intake - just liquids during shift.
[2017-06-22 20:42] VITALS: BP 116/58; PULSE 67; RESP 16; O2SAT 98
[2017-06-22] MEDS: Ondansetron 2 mg/mL 2 mL Inj IVPUSH PRN ×2 (21:38→22:05)
[2017-06-23] MEDS: Morphine ER 15 mg (MS Contin) Tablet PO SCH ×3 (00:30→15:50)
[2017-06-23] MEDS: Heparin 5,000 Unit/mL Inj SUBQ SCH ×3 (00:42→15:50)
[2017-06-23] MEDS: 0.9% Sodium Chloride 1,000 ML IV SCH ×3 (00:43→23:04)
[2017-06-23 06:16] VITALS: BP 101/51; PULSE 50; RESP 16; O2SAT 96
[2017-06-23] MEDS: Pantoprazole 20 mg ER24 Tablet PO SCH (08:17)
[2017-06-23] MEDS: Tolterodine ER 4 mg ER24 Capsule PO SCH (08:20)
[2017-06-23] MEDS ORDERED: CIPR-232 PO (12:10)
[2017-06-23] MEDS: PARoxetine 20 mg Tablet PO SCH (12:22)
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
[2017-06-23 12:56] VITALS: BP 123/77; PULSE 54; RESP 16; O2SAT 99
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
[2017-06-23 22:00] VITALS: BP 104/64; PULSE 60; RESP 16; O2SAT 95
[2017-06-24] MEDS: Heparin 5,000 Unit/mL Inj SUBQ SCH ×2 (00:13→09:28)
[2017-06-24] MEDS: Morphine ER 15 mg (MS Contin) Tablet PO SCH ×2 (00:16→08:30)
[2017-06-24 03:35] VITALS: BP 126/70; PULSE 48; RESP 17; O2SAT 97
--- NOTE | 2017-06-24 05:48 | NUR ---
Shift note uneventful night w/exception of IV site leaking able to reposition and change dsg ,patient changes positions ind. requires min assist ,declines naomi pain meds and remains constipated gave prn senna per req. @[facility]
[2017-06-24] MEDS: Tolterodine ER 4 mg ER24 Capsule PO SCH (08:30)
[2017-06-24] MEDS: Pantoprazole 20 mg ER24 Tablet PO SCH (09:27)
[2017-06-24] MEDS: 0.9% Sodium Chloride 1,000 ML IV SCH (09:28)
[2017-06-24 10:24] VITALS: BP 124/74; PULSE 77; RESP 18; O2SAT 96
--- NOTE | 2017-06-24 10:52 | PCM.DIMED ---
Discharge Instructions Date of Service Jun 24, 2017 Dates of Hospitalization Jun 21, 2017 at 15:00 Discharge Diagnosis Discharge Diagnosis ACUTE DX #Urinary tract infection with pseudomonas pansensitive in the setting of paraplegia, neurogenic bladder, chronic dx #. Paraplegia w/ extreme muscle spasticity #. Neurogenic bladder #. GERD #. Chronic constipation #. Anxiety and depression - Hx hemorrhoids - Hx kidney stones s/p litholapaxy x2 - Hx hypertension - Osteoarthritis Medication Instructions Additional med instructions finish taking Ciprofloxacin 750mg twice a day for 11more days Diet Discharge Diet: No restrictions Activity Discharge Activity: No restrictions Call your provider Call your provider for: Fever or Chills Patient Instructions Patient Instructions You were hospitalized with symptoms suggestive of urinary tract infection. Your condition improved with antiobiotics. Please follow up with your doctor in 2weeks and continue taking antibiotics Follow-up Provider: Fozia Lares MD Follow-up with PCP in: 2 weeks Lily Fisher MD Jun 24, 2017 10:04
--- NOTE | 2017-06-24 11:10 | NUR ---
discharge paperwork reviewed, no questions at this time. pt asks for a 10mL syringe to remove his own catheter. IV removed. pt is waiting for caregivers to come pick him up. pt is baseline W/C bound, will transfer self to car when caregivers arrive. pt denies pain/distress/CP.
--- NOTE | 2017-06-24 11:28 | NUR ---
Social Work-discharge: Data:EMR reviewed. Pt is on day 3 of hospitalization for UTI per H&P. Pt is medically stable for discharge. Pt to return home today via pOV. SW faxed discharge information to pt's CIPRIANO Kelley. No other SW needs identified. All updated and agreeable to plan. Assessment:pt who has [employer] caregivers at home. Plan:Pt to discharge home today via POV. pt to continue with [facility] caregivers at home. No other SW needs identified. All updated and agreeable to plan. IDALIA Boggs
[2017-06-24] MEDS: PARoxetine 20 mg Tablet PO SCH (11:42)
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
== END 2017-06-24 11:59 | disposition home or self-care (01) ==
LOC: SED 11:03 → EDBD 11:03 → MOC 15:00 → MPC 06-22 12:38
PROVIDERS: ADMIT Internal Medicine; ATTEND Internal Medicine
DX: N39.0 Urinary tract infection, site not specified (principal); B96.5 Pseudomonas (aeruginosa) (mallei) (pseudomallei) as the cause of diseases classified elsewhere; N31.8 Other neuromuscular dysfunction of bladder; G82.21 Paraplegia, complete; S24.102S Unspecified injury at T2-T6 level of thoracic spinal cord, sequela; V29.9XXS Motorcycle rider (driver) (passenger) injured in unspecified traffic accident, sequela; K21.9 Gastro-esophageal reflux disease without esophagitis; Z87.442 Personal history of urinary calculi; Z87.440 Personal history of urinary (tract) infections; K59.09 Other constipation; F41.9 Anxiety disorder, unspecified; F32.9 Major depressive disorder, single episode, unspecified; Z89.421 Acquired absence of other right toe(s)
CPT/HCPCS: 36415; 51702; 80048; 80053; 81000; 83605; 83690; 84145; 85025; 87040; 87077; 87086; 87088; 87186; 96361; 96365; 96372; 96375; 96376; 99285; G0378; J0696; J1644; J2405; J7030